=== PATIENT | female | born 2000 | race Caucasian/White ===

== ENCOUNTER → 2022-05-11 11:39 | Outpatient (BNVA) | payer MEDICAID, SELFPAY | PROVIDERS: Visit Provider Obstetrics & Gynecology | DX: Z34.90 Encounter for supervision of normal pregnancy, unspecified, unspecified trimester (principal) | CPT/HCPCS: 76815; 80307; 81000; 85027; 86592; 86762; 86803; 86850; 86900; 87086; 87340; 87491; 87591; 87806 ==

== ENCOUNTER → 2022-06-08 10:58 | Outpatient (BNVA) | payer MEDICAID, SELFPAY | PROVIDERS: Visit Provider Obstetrics & Gynecology | DX: Z34.92 Encounter for supervision of normal pregnancy, unspecified, second trimester (principal) | CPT/HCPCS: 81000; 87491 ==

== ENCOUNTER → 2022-06-16 08:32 | Outpatient (BNVA) | payer MEDICAID, SELFPAY | PROVIDERS: Visit Provider Obstetrics & Gynecology | DX: Z36.87 Encounter for antenatal screening for uncertain dates (principal) | CPT/HCPCS: 76805 ==

== ENCOUNTER → 2022-06-22 11:00 | Outpatient (BNVA) | payer MEDICAID, SELFPAY | PROVIDERS: Visit Provider Obstetrics & Gynecology | DX: Z34.92 Encounter for supervision of normal pregnancy, unspecified, second trimester (principal) | CPT/HCPCS: 81000 ==

== ENCOUNTER → 2022-07-30 11:50 | Outpatient (BNVA) | payer MEDICAID, SELFPAY | PROVIDERS: Visit Provider Nurse Practitioner Women's Health | DX: Z34.92 Encounter for supervision of normal pregnancy, unspecified, second trimester (principal); O98.812 Other maternal infectious and parasitic diseases complicating pregnancy, second trimester; A74.9 Chlamydial infection, unspecified; O36.0990 Maternal care for other rhesus isoimmunization, unspecified trimester, not applicable or unspecified | CPT/HCPCS: 82950; 84315 ==

== ENCOUNTER → 2022-08-18 14:54 | Outpatient (BNVA) | payer MEDICAID, SELFPAY | PROVIDERS: Visit Provider Obstetrics & Gynecology | DX: Z34.92 Encounter for supervision of normal pregnancy, unspecified, second trimester (principal) | CPT/HCPCS: 76816; 81000; 85027; 86850 ==

== ENCOUNTER 2022-09-02 23:06 | Outpatient (CLI) | payer MEDICAID, SELFPAY ==
[2022-09-02 23:14] VITALS: RESP 16
[2022-09-02 23:16] VITALS: BMI 28.3
[2022-09-02 23:25] VITALS: BP 113/61; PULSE 82
[2022-09-02 23:40] VITALS: BP 107/58; PULSE 82; RESP 18; TEMP 36.2
[2022-09-02 23:55] VITALS: BP 108/55; PULSE 73
[2022-09-03 00:25] VITALS: BP 104/64; PULSE 78
[2022-09-03 00:40] VITALS: BP 114/78; PULSE 81
[2022-09-03 00:52] VITALS: RESP 18
[2022-09-03 00:53] LABS: Add Urine Culture? No; Bacteria Urine TRACE /hpf; Bilirubin Urine Neg (Negative); Blood Urine Neg (Negative); Glucose Urine UA Norm (Normal); Ketones Urine Negative (Negative); Leukocyte Esterase Urine Negative (Negative); Nitrate Urine Negative (Negative); Protein Urine Neg (Negative); Specific Gravity, Urine 1.015 (1.005-1.030); Urine Appearance Clear (CLEAR); Urine Color Colorless (Yellow); Urobilinogen Urine Norm (Negative); WBC Urine 0-4 /hpf (0-5); pH Urine 6 (5-7)
[2022-09-03 01:15] VITALS: BP 114/78; PULSE 81; RESP 18
== END 2022-09-03 01:06 | disposition home or self-care (01) ==
LOC: OPOB 23:09 → OBGYN 23:28
PROVIDERS: Visit Provider Obstetrics & Gynecology
DX: O26.899 Other specified pregnancy related conditions, unspecified trimester (principal); Z3A.00 Weeks of gestation of pregnancy not specified; M54.9 Dorsalgia, unspecified
CPT/HCPCS: 59025; 81001; 99211

== ENCOUNTER → 2022-09-24 09:29 | Outpatient (BNVA) | payer MEDICAID, SELFPAY | PROVIDERS: Visit Provider Obstetrics & Gynecology | DX: O26.849 Uterine size-date discrepancy, unspecified trimester (principal); Z3A.00 Weeks of gestation of pregnancy not specified | CPT/HCPCS: 76816; 76820; 81000; 85025 ==

== ENCOUNTER → 2022-09-29 13:48 | Outpatient (BNVA) | payer MEDICAID, SELFPAY | PROVIDERS: Visit Provider Obstetrics & Gynecology | DX: O26.849 Uterine size-date discrepancy, unspecified trimester (principal); Z3A.34 34 weeks gestation of pregnancy | CPT/HCPCS: 76819 ==

== ENCOUNTER → 2022-10-09 08:58 | Outpatient (BNVA) | payer MEDICAID, SELFPAY | PROVIDERS: Visit Provider Obstetrics & Gynecology | DX: O26.849 Uterine size-date discrepancy, unspecified trimester (principal); O36.0990 Maternal care for other rhesus isoimmunization, unspecified trimester, not applicable or unspecified; O98.812 Other maternal infectious and parasitic diseases complicating pregnancy, second trimester; A74.9 Chlamydial infection, unspecified; Z3A.00 Weeks of gestation of pregnancy not specified | CPT/HCPCS: 81000; 87081; 87086 ==

== ENCOUNTER → 2022-10-13 09:46 | Outpatient (BNVA) | payer MEDICAID, SELFPAY | PROVIDERS: Visit Provider Obstetrics & Gynecology | DX: Z34.90 Encounter for supervision of normal pregnancy, unspecified, unspecified trimester (principal) | CPT/HCPCS: 76819; 76820 ==

== ENCOUNTER 2022-10-18 13:55 | Outpatient (CLI) | payer MEDICAID, SELFPAY ==
[2022-10-18 14:06] VITALS: RESP 17
[2022-10-18 14:07] VITALS: BMI 28.5
[2022-10-18 14:49] LABS: Add Urine Culture? No; Bacteria Urine 2+ /hpf; Bilirubin Urine Neg (Negative); Blood Urine Neg (Negative); Glucose Urine UA Norm (Normal); Ketones Urine 1+ (Negative); Leukocyte Esterase Urine 1+ (Negative); Nitrate Urine Negative (Negative); Protein Urine Neg (Negative); Specific Gravity, Urine 1.015 (1.005-1.030); Squamous Epithelial Cell Urine 25-40 /hpf (0-5); Urine Appearance SL Hazy (CLEAR); Urine Color Straw (Yellow); Urobilinogen Urine Norm (Negative); WBC Urine 15-25 /hpf (0-5); pH Urine 6 (5-7)
[2022-10-18 14:55] VITALS: BP 106/64; PULSE 80; TEMP 35.8
--- NOTE | 2022-10-18 15:22 | P.TNLD_ITS ---
OB L&D Triage Visit Information: Date of evaluation: 10/18/22 Comments/Additional reason(s) for visit: 22yo female 37.3 wk IUP c/o low back pain and pelvic pressure and possible LOF. Admits to good FM. EFM- Cat 1 no contractions. UA- Positive Leuk Esterase, WBC 15-25, +2 Bacteria. Discussed Cystitis and Bacturia, will treat with IV antibiotics and encouraged pt to increase fluids. Evaluation: Baseline heart rate: 140 monitor accelerations: Present 15x15 monitor decelerations: None station: -4 Laboratory results: Laboratory Tests 10/18/22 14:20 Urine Color Straw Urine Appearance Sl hazy A Urine pH 6 Ur Specific Gravit y 1.015 Urine Protein Neg Urine Glucose (UA) Norm Urine Ketones 1+ H Urine Blood Neg Urine Nitrate Negative Urine Bilirubin Neg Urine Urobilinogen Norm Ur Leukocyte Lyly ase 1+ H Urine RBC None Urine WBC 15-25 H Ur Squamous Epith Cells 25-40 H Amorphous Sediment Not Reportable Urine Bacteria 2+ H Vital signs: Vital Signs - 24 hr 10/18/22 14:06 10/18/22 14:06 10/18/22 14:55 Temperature 96.4 F L Pulse Rate 80 Respiratory Rate 17 17 Blood Pressure 106/64 Care ERIN Calculator Estimated Delivery Date Method Current WG Current Estimate 11/05/22 Ultrasound #1 37w 3d Other Estimates 11/06/22 Ultrasound #2 37w 2d Specific Issues/Plans * SMOKER * CHLAMYDIA * RH NEGATIVE * GROWTH RESTRICTION - wkly NST/biweekly BPP-- rpt growth scan at 36wks Final Diagnosis Final Diagnosis (1) Supervision of normal : Plan: A. 22yo at 37.3 wk IUP P. EFM IV Ancef 1 gm IVPB Keep Prental Apptmt. Status: Acute Code(s): Z34.90 - Encounter for supervision of normal , unspecified, unspecified trimester Coding Level of Care Code Acute Code for Chg Fwd Diagnoses Supervision of normal Z34.90
[2022-10-18] MEDS: ceFAZolin 1,000 MG in sodium chloride 0.9% (plus) 50 ML 100 MG IV (15:39)
[2022-10-18 16:30] VITALS: BP 106/64; PULSE 80; TEMP 35.8
[2022-10-19 07:41] LABS: Nitrazine Paper, PH Negative
== END 2022-10-18 16:32 | disposition home or self-care (01) ==
LOC: OPOB 13:55 → OBGYN 13:56
PROVIDERS: Visit Provider Obstetrics & Gynecology
DX: O47.9 False labor, unspecified (principal); Z3A.00 Weeks of gestation of pregnancy not specified
CPT/HCPCS: 12345; 59025; 81001; 83986; 99211; J0690

== ENCOUNTER 2022-10-19 17:23 | Outpatient (CLI) | payer MEDICAID, SELFPAY ==
[2022-10-19 17:23] VITALS: BMI 29.0
[2022-10-19 17:48] VITALS: BP 122/74; PULSE 85
[2022-10-19 18:03] VITALS: BP 109/68; PULSE 88
[2022-10-19 18:16] VITALS: RESP 17
[2022-10-19 18:18] VITALS: BP 107/69; PULSE 101
[2022-10-19 19:13] LABS: Nitrazine Paper, PH Negative
== END 2022-10-19 18:50 | disposition home or self-care (01) ==
LOC: OPOB 17:29 → OBGYN 17:31
PROVIDERS: Visit Provider Obstetrics & Gynecology
DX: O26.899 Other specified pregnancy related conditions, unspecified trimester (principal); Z3A.00 Weeks of gestation of pregnancy not specified; N89.8 Other specified noninflammatory disorders of vagina
CPT/HCPCS: 59025; 83986; 99211

== ENCOUNTER → 2022-10-20 08:37 | Outpatient (BNVA) | payer MEDICAID, SELFPAY | PROVIDERS: Visit Provider Obstetrics & Gynecology | DX: O26.849 Uterine size-date discrepancy, unspecified trimester (principal); Z3A.00 Weeks of gestation of pregnancy not specified | CPT/HCPCS: 76815; 76819; 76820 ==

== ENCOUNTER 2022-10-28 21:38 | Outpatient (CLI) | payer MEDICAID, SELFPAY ==
[2022-10-28] VITALS (9 sets, daily range): BP systolic 101–143; BP diastolic 55–73; PULSE 83–99; RESP 16
== END 2022-10-29 00:01 | disposition home or self-care (01) ==
LOC: OPOB 21:39 → OBGYN 21:39
PROVIDERS: Visit Provider Obstetrics & Gynecology
DX: O46.90 Antepartum hemorrhage, unspecified, unspecified trimester (principal); Z3A.00 Weeks of gestation of pregnancy not specified; R10.9 Unspecified abdominal pain
CPT/HCPCS: 59025; 87491; 87591; 99211

== ENCOUNTER 2022-10-29 14:00 | Outpatient (CLI) | payer MEDICAID, SELFPAY ==
[2022-10-29] VITALS (10 sets, daily range): BP systolic 95–126; BP diastolic 59–77; PULSE 83–94; RESP 15–18; BMI 29.0
== END 2022-10-29 16:32 | disposition home or self-care (01) ==
LOC: OPOB 14:09 → OBGYN 14:10
PROVIDERS: Visit Provider Obstetrics & Gynecology
DX: O46.90 Antepartum hemorrhage, unspecified, unspecified trimester (principal); O26.899 Other specified pregnancy related conditions, unspecified trimester; R10.9 Unspecified abdominal pain; Z3A.00 Weeks of gestation of pregnancy not specified
CPT/HCPCS: 59025; 99211

== ENCOUNTER 2022-10-30 01:56 | Inpatient (IN) | payer MEDICAID, SELFPAY ==
[2022-10-30] VITALS (29 sets, daily range): BP systolic 100–176; BP diastolic 61–95; PULSE 44–114; RESP 16–18; TEMP 36.2–37; O2SAT 82–100; BMI 28.8
[2022-10-30 02:19] LABS: Basophils % 0.1 %; Eosinophils % 0.1 %; Hemoglobin 12.2 g/dL (11.5-15.3); Lymphocytes # 1.8 10^3/uL (1.5-6.5); Lymphocytes % 12.3 %; Mean Corpuscular Volume 93.9 fl (81-99); Mean Platelet Volume 11.2 fL (7.4-10.4); Monocytes # 1.1 10^3/uL (0.2-0.9); Monocytes % 7.5 %; Neutrophils # 11.73 10^3/uL (1.8-8.0); Neutrophils % 79.5 %; Nucleated Red Blood Cells % 0 %; Platelet Count 281 10^3/cmm (130-400); Red Blood Count 3.94 10^6/uL (4.1-5.3); Red Cell Distribution Width 12.2 % (12.1-15.1); White Blood Count 14.8 10^3/uL (4.5-13.0)
--- NOTE | 2022-10-30 03:17 | PM.OBGYHP ---
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 FINANCE PROFESSOR History of Present Illness Adriana Faye is a 22 year old female SA1 EDC November 05, 2022 at 39 w 1 d presents to L&D c/o painful UCs no bleeding + clear fluid leakage on arrival to hospital + active movements Medications/Allergies Home Medications Medication Instructions Recorded Confirmed Last Taken Type No Known Home Medications 06/08/22 10/28/22 Unknown History Allergies Allergy/AdvReac Type Severity Reaction Status Date / Time No Known Allergies Allergy Verified 10/29/22 14:32 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 PFSH: Medical History No pertinent past medical history neghx: htn,dm,thyroid,dvt/pe PCP: none Surgical History No history of previous surgery Family History Denies family history of Colon cancer Pancreatic cancer Ovarian cancer Thyroid cancer Diabetes Heart disease Breast cancer Hypertension Uterine cancer Stroke History History History 2 Term 0 0 Miscarriages/Ectopic 1 Living Children 0 Care ERIN Calculator Estimated Delivery Date Method Current WG Current Estimate 11/05/22 Ultrasound #1 39w 1d Other Estimates 11/06/22 Ultrasound #2 39w 0d Specific Issues/Plans SMOKER CHLAMYDIA RH NEGATIVE GROWTH RESTRICTION - wkly NST/biweekly BPP-- rpt growth scan at 36wks Vitals/I&O/Wt Last Vital Signs Temp 97.2 F L 10/30/22 01:30 Pulse 92 10/30/22 03:10 BP 130/79 10/30/22 03:10 Pulse Ox 99 10/30/22 02:47 Physical Exam Narrative: VS normal awake, alert in discomfort due to contractions Cx: 5 cm / 100 / +1 / cephalic External monitor: regular UCs heart tracing good variability, + accelerations Data 10/30/22 02:00 Other Labs: GBS negative A&P Assessment and plan (1) Term : (2) Active labor: admit to L&D expectant management Attestations Medical Necessity Statement*: patient at 39 w 1 d with active labor Coding Level of Care Code Acute Code for Chg Fwd Diagnoses Term Z34.90 Active labor Time Spent (min) 60
[2022-10-30] MEDS: HYDROcodone-acetaminophen 5-325 mg Tablet PO ×2 (03:22→09:53)
[2022-10-30] MEDS: benzocaine-menthol 78 gm Canister 1 SPRAY TOPICAL (03:22)
--- NOTE | 2022-10-30 03:23 | PM.OBGYPN ---
PROJECT ENGINEERING MANAGER Subjective Subjective: Interval history: October 30, 2022, 0255 DELIVERY NOTE , vigorous female infant normal placenta and cord cord gases and blood obtained second-degree perineal laceration and right labial laceration repaired EBL: 300 cc no complications Vitals/I&O/Wt Last Vital Signs Temp 97.2 F L 10/30/22 01:30 Pulse 92 10/30/22 03:10 BP 130/79 10/30/22 03:10 Pulse Ox 99 10/30/22 02:47 Data 10/30/22 02:00 A&P Assessment and plan (1) Active labor: (2) Term : (3) Spontaneous vaginal delivery: Attestations Medical Necessity Statement*: patient at term with active labor, spontaneous vaginal delivery Coding Level of Care Code Acute Code for Chg Fwd Diagnoses Active labor Term Z34.90 Spontaneous vaginal delivery O80 Time Spent (min) 60
--- NOTE | 2022-10-30 03:26 | PM.DELIVERY ---
Delivery Note: Date of delivery: October 30, 2022 Pre-delivery diagnoses: 39 w 1 d active labor Post-delivery diagnoses: same, delivered Procedure: spontaneous vaginal delivery Delivering Physician: Abdoulaye Santamaria M.D. Estimated blood loss (mL): 300 Findings: vigorous female infant Post-Delivery Status: stable History History History 2 Term 0 0 Miscarriages/Ectopic 1 Living Children 0 A&P Assessment and plan (1) Spontaneous vaginal delivery: (2) Perineal laceration during delivery: repaired Coding Level of Care Code Acute Code for Chg Fwd Diagnoses Spontaneous vaginal delivery O80 Perineal laceration during delivery O70.9 Time Spent (min) 60
[2022-10-30] MEDS: docusate sodium 100 mg Capsule PO ×2 (09:53→18:31)
[2022-10-30] MEDS: ibuprofen 800 mg tablet PO ×3 (09:53→21:29)
[2022-10-30] MEDS: prenatal vitamin Capsule 1 CAP PO (09:54)
[2022-10-30 17:13] LABS: Hematocrit 34.2 % (37.0-47.0); Hemoglobin 11.1 g/dL (11.5-15.3); Mean Corpuscular HGB Conc 32.5 g/dL (30.0-36.0); Mean Corpuscular Volume 95.5 fl (81-99); Mean Platelet Volume 10.8 fL (7.4-10.4); Platelet Count 204 10^3/cmm (130-400); Red Blood Count 3.58 10^6/uL (4.1-5.3); Red Cell Distribution Width 12.2 % (12.1-15.1); White Blood Count 12.5 10^3/uL (4.5-13.0)
[2022-10-31] MEDS: HYDROcodone-acetaminophen 5-325 mg Tablet PO (01:12)
[2022-10-31 04:00] VITALS: BP 92/58; PULSE 91; RESP 18; TEMP 36.5; O2SAT 97
--- NOTE | 2022-10-31 08:58 | P.DS_ITS ---
Discharge Providers Date of Admission: 10/30/22 01:56 Date of Discharge: October 31, 2022 Attending Provider at Admission: Abdoulaye Santamaria MD Attending Provider at Discharge: Anuradha Palm MD Diagnoses at Discharge Discharge Diagnosis (1) Spontaneous vaginal delivery: Status: Acute (2) Perineal laceration during delivery: Status: Acute Reason for Visit Reason for Visit: Contractions, Possible ROM Hospital Course Hospital Course The patient was admitted in active labor. She had spontaneous delivery of a term . She did well and on DAY#1, was requesting discharge. Physical Exam Narrative: The patient is doing well today. No concerns. Ambulating without difficulty, tolerating a regular diet and pain is well controlled. Const: COMMON NORMALS: no acute distress, average body habitus, patient oriented x3, no limitations, healthy appearing, alert and well nourished GENERAL APPEARANCE: cooperative, comfortable, well kempt and well developed ORIENTATION/CONSCIOUSNESS: Yes awake, Yes oriented to person, Yes oriented to place and Yes oriented to time Resp: COMMON NORMALS: normal respiratory effort EFFORT & INSPECTION: Yes able to speak in complete sentences GI: COMMON NORMALS: Soft to palpation and non-tender PALPATION: Yes Soft to palpation Extremity: COMMON NORMALS: no calf tenderness Neuro: COMMON NORMALS: patient oriented x3 SENSORIUM/ORIENTATION: Yes alert, Yes oriented to person, Yes oriented to place and Yes oriented to time Psych: APPEARANCE: Yes well kempt Discharge Data Studies Completed and Pending Pending at discharge Category Date Time Status Antibody Identification Routine Lab 10/30/22 02:00 Results Complete Crossmatch Routine Lab 10/30/22 02:00 Results Rho D Immune Globulin Routine Lab 10/30/22 02:00 Results Type and Screen Routine Lab 10/30/22 02:00 Results Laboratory Results WBC 12.5 10^3/uL (4.5-13.0) 10/30/22 15:01 RBC 3.58 10^6/uL (4.1-5.3) L 10/30/22 15:01 Hgb 11.1 g/dL (11.5-15.3) L 10/30/22 15:01 Hct 34.2 % (37.0-47.0) L 10/30/22 15:01 MCV 95.5 fl (81-99) 10/30/22 15:01 MCH 31.0 pg (28.0-34.0) 10/30/22 15:01 MCHC 32.5 g/dL (30.0-36.0) 10/30/22 15:01 RDW 12.2 % (12.1-15.1) 10/30/22 15:01 Plt Count 204 10^3/cmm (130-400) 10/30/22 15:01 MPV 10.8 fL (7.4-10.4) H 10/30/22 15:01 Neut % (Auto) 79.5 % 10/30/22 02:00 Lymph % (Auto) 12.3 % 10/30/22 02:00 Mcmullen % (Auto) 7.5 % 10/30/22 02:00 Eos % (Auto) 0.1 % 10/30/22 02:00 Baso % (Auto) 0.1 % 10/30/22 02:00 Neut # (Auto) 11.73 10^3/uL (1.8-8.0) H 10/30/22 02:00 Lymph # (Auto) 1.8 10^3/uL (1.5-6.5) 10/30/22 02:00 Mcmullen # (Auto) 1.1 10^3/uL (0.2-0.9) H 10/30/22 02:00 Eos # (Auto) 0.0 10^3/uL (0.0-0.8) 10/30/22 02:00 Baso # (Auto) 0.0 10^3/uL (0.0-0.1) 10/30/22 02:00 Nucleated RBC % (auto) 0 % 10/30/22 02:00 Nucleated RBCs # 0.0 /100WBC 10/30/22 02:00 Blood Type A Negative 10/30/22 02:00 Rho(D) Type Negative 10/30/22 02:00 Antibody Screen Positive 10/30/22 02:00 Screen Negative (Negative) 10/30/22 15:01 Vitals Last Vital Signs Temp 97.7 F 10/31/22 04:00 Pulse 91 10/31/22 04:00 Resp 18 10/31/22 04:00 BP 92/58 10/31/22 04:00 Pulse Ox 97 10/31/22 04:00 O2 Del Method 10/31/22 04:00 Discharge Plan Discharge Patient Disposition: Home Condition: Stable Prescriptions: Continued No Known Home Medications Discharge Orders: Discharge Order (Routine); Ordered 10/31/22 Ordered By: Anuradha Palm Patient Instructions: Opioid Safety Discharge Attestations Time Spent in Discharge Care*: less than 30 min Quality Metrics Clinical Quality Measures [ No reported AMI, CVA or VTE this stay] Coding Level of Care Code Acute Code for Chg Fwd Diagnoses Spontaneous vaginal delivery O80 Perineal laceration during delivery O70.9
[2022-10-31] MEDS: docusate sodium 100 mg Capsule PO (09:24)
[2022-10-31] MEDS: ibuprofen 800 mg tablet PO (09:25)
[2022-10-31] MEDS: prenatal vitamin Capsule 1 CAP PO (09:25)
[2022-10-31 10:02] VITALS: BP 125/86; PULSE 106; RESP 16; TEMP 36.6; O2SAT 97
[2022-10-31 11:00] VITALS: BP 125/78; PULSE 98; TEMP 36.7; O2SAT 98
== END 2022-10-31 11:05 | disposition home or self-care (01) | DRG 806 ==
LOC: OPOB 01:57 → OBGYN 01:57
PROVIDERS: Admitting Provider Obstetrics & Gynecology; Visit Provider Obstetrics & Gynecology
DX: O99.334 Smoking (tobacco) complicating childbirth (principal); O36.0930 Maternal care for other rhesus isoimmunization, third trimester, not applicable or unspecified; Z37.0 Single live birth; O98.82 Other maternal infectious and parasitic diseases complicating childbirth; F17.200 Nicotine dependence, unspecified, uncomplicated; O70.1 Second degree perineal laceration during delivery; Z3A.39 39 weeks gestation of pregnancy
CPT/HCPCS: 36415; 36430; 59025; 59409; 80503; 83986; 85025; 85027; 85460; 86850; 86870; 86900; 90384; 96372; 99211